=== PATIENT | female | born 1970 | race Hispanic/Latino ===

== ENCOUNTER 2024-08-22 08:58 | Emergency (ER) | payer BC ==
--- OUTSIDE RECORDS SUMMARY | 2024-08-22 09:01 | XMS REPORT | Continuity of Care Document ---
Author Name Unknown Address [address] [place] [address] [address] [place] [address] [facility] Address [address] [facility] [address] [place] [address] Care Team Providers Care Recovery Manager Name Role Phone TORIBIO NEGRETE Attending Clinician Unavailable Payers Payer Name Policy Type Policy Number Effective Date Expirati on Date Source [facility] PPO/POS [id number] 2016 00:00:00 Allergies, Adverse Reactions, Alerts Allergy Name Allergy Type Status Severity Reaction(s) Onset Date Inactive Date Treating Clinician Comments Source NO KNOWN ALLERGIE S Drug Class Active [facility] Encounters Start Date/Time End Date/Time Encounter Type Admission Type Attending Clinicians Care Facility Care Department Encounter ID Source 2020-09-18 18:25:00 2020-09-18 18:25:00 Outpatient [facility] [id number] [facility] 2020-09-18 18:25:00 2020-09-18 18:25:00 Outpatient [facility] [id number] [facility] 2020-08-28 16:55:00 2020-08-28 16:55:00 Outpatient TORIBIO HENDRICKS [facility] [id number] [facility]
--- NOTE | 2024-08-22 10:33 | RAD REPORT ---
EXAMINATION: XR LEFT FOOT CLINICAL INDICATION: contusion, left 4th/5th toes;Pain TECHNIQUE: Multiple projections of the left foot were obtained. COMPARISON: No prior exam. FINDINGS: No acute fracture or dislocation seen. Small plantar and large posterior calcaneal spur.
--- NOTE | 2024-08-22 11:17 | ER ---
Nurse's Notes [facility] Name: Jenna Hickey Age: 54 yrs Sex: Female : 1970 Arrival Date: 08/22/2024 Time: 08:58 Bed 19 Private MD: Diagnosis: Contusion of left foot Presentation: 08/22 09:13 Chief complaint: Tripped over baby gate 3 weeks ago, c/o left foot pain 6/10. hb Coronavirus screen: At this time, the client does not indicate any symptoms associated with coronavirus-19. Ebola Screen: No symptoms or risks identified at this time. Initial Sepsis Screen: Does the patient meet any 2 criteria? No. Patient's initial sepsis screen is negative. Does the patient have a suspected source of infection? No. Patient's initial sepsis screen is negative. Risk Assessment: Do you want to hurt yourself or someone else? Patient reports no desire to harm self or others. Onset of symptoms was August 01, 2024. 09:13 Method Of Arrival: Ambulatory hb 09:13 Acuity: ROBINSON 4 hb Triage Assessment: 09:15 General: Appears in no apparent distress. Behavior is calm, cooperative. Pain: hb Complains of pain in left foot. Neuro: Level of Consciousness is awake, alert, obeys commands, Oriented to person, place, time, situation. Cardiovascular: Patient's skin is warm and dry. Respiratory: Respiratory effort is even, unlabored, Respiratory pattern is regular, symmetrical. Musculoskeletal: Reports left foot pain. 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 - Infectious Disease History:: Denies. - Social history:: Smoking status: Patient denies any tobacco usage or history of. - Family history:: not pertinent. - Hospitalizations: : No recent hospitalization is reported. Screenin:17 [facility] ED Fall Risk Assessment (Adult) History of falling in the last 3 months, hb including since admission Yes- single mechanical fall (1 pt) Confusion or Disorientation No (0 pts) Intoxicated or Sedated No (0 pts) Impaired Gait No (0 pts) Mobility Assist Device Used No (0 pt) Altered Elimination No (0 pt) Score/Fall Risk Level 0 - 2 = Low Risk Oriented to surroundings, Maintained a safe environment, Educated pt \T\ family on fall prevention, incl call for assistance when getting out of bed. Abuse screen: Denies threats or abuse. Denies injuries from another. Nutritional screening: No deficits noted. Tuberculosis screening: No symptoms or risk factors identified. Assessment: 09:17 General: See triage assessment. hb 10:47 General: Appears uncomfortable, Behavior is calm, cooperative, appropriate for age, me1 Reports Tripped over baby gate 3 weeks ago, c/o left foot pain 6/10. Pain: Complains of pain in left foot Pain radiates to left foot Pain currently is 6 out of 10 on a pain scale. Quality of pain is described as aching, Pain began 3 weeks ago Is continuous. Neuro: Level of Consciousness is awake, alert, obeys commands, Oriented to person, place, time, situation, Appropriate for age. Cardiovascular: Patient's skin is warm and dry. Respiratory: Airway is patent Respiratory effort is even, unlabored, Respiratory pattern is regular, symmetrical. GI: No signs and/or symptoms were reported involving the gastrointestinal system. : No signs and/or symptoms were reported regarding the genitourinary system. EENT: No signs and/or symptoms were reported regarding the EENT system. Derm: Skin is intact, is healthy with good turgor, Skin is pink, warm \T\ dry. Musculoskeletal: Reports pain in left foot. Injury Description: Tripped over baby gate 3 weeks ago, c/o left foot pain 6/10. Vital Signs: 09:13 BP 156 / 93; Pulse 71; Resp 16; Temp 98; Pulse Ox 99% on R/A; Pain 6/10; hb 11:32 BP 142 / 87; Pulse 68; Resp 15; Temp 98.1; Pulse Ox 100% ; me1 09:13 Pain Scale: Adult hb ED Course: 09:01 Patient arrived in ED. al6 09:02 Josse Hauser MD is Attending Physician. rn 09:15 Triage completed. hb 09:15 Arm band placed on. hb 09:17 Patient has correct armband on for positive identification. Bed in low position. Call hb light in reach. Provided Education on: use of call light . 09:17 No provider procedures requiring assistance completed. Patient did not have IV access hb during this emergency room visit. 09:54 XRAY Foot LEFT 3 View In Process Unspecified. EDMS 10:24 Anat Kimbrough, RN is Primary Nurse. me1 Administered Medications: No medications were administered Medication: 09:17 VIS not applicable for this client. Outcome: 11:16 Discharge ordered by . rn 11:38 Discharged to home ambulatory, with family, me1 11:38 Condition: stable 11:38 Discharge instructions given to patient, Instructed on discharge instructions, follow up and referral plans. Demonstrated understanding of instructions, follow-up care, 11:39 Patient left the ED. me1 Signatures: Dispatcher [employer] EDOR Josse Hauser MD MD rn Baxter, Heather RN RASHAD Anat Kimbrough, RASHAD RN [facility] [place] [employer]: (The following items were deleted from the chart) 10:24 09:13 Chief complaint: Tripped over baby gate 3 weeks ago, c/o left foot pain 6 [facility] 10:47 09:13 Chief complaint: Tripped over baby gate 3 weeks ago, c/o left foot pain [address] [place] [place] [address]
--- NOTE | 2024-08-22 11:17 | EDPHYS ---
Physician Documentation [facility] Name: Jenna Hickey Age: 54 yrs Sex: Female : 1970 Arrival Date: 08/22/2024 Time: 08:58 Bed 19 Private MD: ED Physician Josse Hauser HPI: 08/22 09:18 This 54 yrs old Female presents to ER via Ambulatory with complaints of Foot rn Injury. 09:18 The patient presents with an injury, pain. The complaints affect the left foot. Onset: rn The symptoms/episode began/occurred 3 week(s) ago. Severity of symptoms: At their worst the symptoms were mild, in the emergency department the symptoms are unchanged. Patient reports accidentally kicked a gate while barefoot with left foot 3 weeks ago. 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 Reports persistent pain to the left fourth and fifth toes. No longer bruised but still hurts.. 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 - Infectious Disease History:: Denies. - Social history:: Smoking status: Patient denies any tobacco usage or history of. - Family history:: not pertinent. - Hospitalizations: : No recent hospitalization is reported. ROS: 09:18 Constitutional: Negative for fever, chills, and weight loss, MS/Extremity: Positive for rn left foot injury and pain Exam: 09:18 Constitutional: This is a well developed, well nourished patient who is awake, alert, rn and in no acute distress. MS/ Extremity: Pulses equal, no cyanosis. Neurovascular intact. Mild tenderness along the fourth and fifth distal toes. No ecchymosis. No open wounds. Mild bilateral pedal edema noted along lateral malleolus. Vital Signs: 09:13 BP 156 / 93; Pulse 71; Resp 16; Temp 98; Pulse Ox 99% on R/A; Pain 6/10; hb 11:32 BP 142 / 87; Pulse 68; Resp 15; Temp 98.1; Pulse Ox 100% ; me1 09:13 Pain Scale: Adult hb MDM: 09:02 Medical Screening Exam initiated rn 11:15 Differential diagnosis: fracture, sprain. Data reviewed: vital signs, nurses notes, rn radiologic studies, plain films, and as a result, I will discharge patient. Counseling: I had a detailed discussion with the patient and/or guardian regarding the historical points, exam findings, and any diagnostic results supporting the discharge/admit diagnosis, radiology results, the need for outpatient follow up, to return to the emergency department if symptoms worsen or persist or if there are any questions or concerns that arise at home. Special discussion: I discussed with the patient/guardian in detail that at this point there is no indication for admission to the hospital. It is understood, however, that if the symptoms persist or worsen the patient needs to return immediately for re-evaluation. ED course: X-ray left foot images negative for fracture or dislocation per my interpretation. 08/22 09:15 Order name: XRAY Foot LEFT 3 View; Complete Time: 10:34 rn Administered Medications: No medications were administered Disposition Summary: 08/22/24 11:16 Discharge Ordered Notes: Location: Home rn Problem: new rn Symptoms: have improved rn Condition: Stable rn Diagnosis - Contusion of left foot rn Followup: rn - With: Private Physician - When: As needed - Reason: Recheck today's complaints, Re-evaluation by your physician Discharge Instructions: - Discharge Summary Sheet rn - Foot Contusion rn Forms: - Medication Reconciliation Form rn - Antibiotic video production intern - Prescription Opioid Use rn - Patient Portal Instructions rn - Leadership Thank You Letter rn - Work release form me1 Signatures: Dispatcher [employer] Josse Smith MD MD rn Baxter, Heather, RN RN
[2024-08-22 11:58] VITALS: BP 142/87; TEMP 98.1; O2SAT 100
== END 2024-08-22 11:39 | disposition home or self-care (01) ==
LOC: ER 08:58
DX: S90.32XA Contusion of left foot, initial encounter (principal)
CPT/HCPCS: 99283